=== PATIENT | male | born 1965 | race Caucasian/White ===

== ENCOUNTER 2019-10-10 23:30 | Emergency (ER) | payer MEDICAID, SELFPAY ==
[~2019-10-10] VITALS: Ht 162.6 cm; Wt 72.6 kg
[2019-10-10 23:41] VITALS: BP 141/79
[2019-10-10] MEDS ORDERED: CLINDAMYCIN HC300 MG ORAL (23:42)
--- NOTE | 2019-10-10 23:42 | Emergency Room Report ---
History of Present Illness General Chief Complaint: To Be Triaged Source: Patient Present Illness HPI This a 54-year-old male with no significant past medical history. He does have a history of drug abuse. He was brought in by police for medical clearance. Patient said that he has staph infection in his lower extremity. He said is been there for a week. There is some drainage. No fever chills but no nausea no vomiting. Denies any other complaint. No pain. Allergies: Coded Allergies: No Known Allergies (Unverified , 10/10/19) Patient History Past Medical History: see triage record, old chart reviewed Past Surgical History: other Pertinent Family History: none Social History: Reports: drug use Immunizations: other Reviewed Nursing Documentation: PMH: Agreed; PSxH: Agreed Review of Systems Eye: Denies: eye pain, blurred vision ENT: Denies: ear pain, nose congestion, throat swelling Respiratory: Denies: cough, shortness of breath Cardiovascular: Denies: chest pain, palpitations Gastrointestinal: Denies: abdominal pain, diarrhea, nausea, vomiting Musculoskeletal: Denies: back pain, joint pain Skin: Denies: rash Neurological: Denies: headache, numbness Endocrine: Denies: increased thirst, increased urine Hematologic/Lymphatic: Denies: easy bruising All Other Systems: negative except mentioned in HPI Physical Exam Vitals unremarkable Sp02 EP Interpretation: reviewed, normal General Appearance: well appearing, no apparent distress, alert Head: normocephalic, atraumatic Eyes: bilateral eye PERRL, bilateral eye EOMI ENT: hearing grossly normal, normal pharynx Neck: full range of motion, supple, no meningismus Respiratory: chest non-tender, lungs clear, normal breath sounds Cardiovascular #1: regular rate, rhythm, no murmur Gastrointestinal: normal bowel sounds, non tender, no mass, no organomegaly, no bruit, non-distended Musculoskeletal: back normal, normal range of motion, gait/station normal, other - Lower extremities with ulcerations. There is erythema to the lower extremities mostly on the right side. No abscess seen. Psychiatric: mood/affect normal Medical Decision Making Diagnostic Impression: Primary Impression: Cellulitis of both lower extremities Additional Impression: Substance abuse ER Course Patient with cellulitis lower extremities. I suspect he has skin picking now is infected. He denies any IV drug use or skin popping. No evidence of any abscess or necrotizing fasciitis. Dose of antibiotics given here. Wound dressing done. Patient will be discharged to police manager. Status: improved Disposition: HOME, SELF-CARE Condition: Stable Scripts Clindamycin Hcl (CLINDAMYCIN HCL) 300 Mg Capsule 300 MG ORAL THREE TIMES A DAY, #21 CAP Prov: Pablo David MD 10/10/19 Additional Instructions: Keep wound clean. Stop using drugs. Follow-up with your doctor in 7 days. Return if worse. Pablo David MD Oct 10, 2019 23:42
--- NOTE | 2019-10-10 23:43 | NUR ---
ED Nurse Note: Patient was BIB [employer] for medical clearance. Patient c/o right lower leg pain. Pt AAO x4, VSS at this time.
[2019-10-10] MEDS ORDERED: Clindamycin 150mg cap ORAL ONE (23:45)
[2019-10-10 23:49] VITALS: BP 141/79
--- NOTE | 2019-10-10 23:50 | NUR ---
ED Nurse Note: Pt cleared by health care Provider for discharge. DC instructions/prescription was given and explained to pt and verbalized understanding of teachings. All medical deviecs such as ID band removed. Pt is AAO x4, ambulatory and left with all personal belongings.
== END 2019-10-10 23:49 | disposition home or self-care (01) ==
LOC: EMR 23:38
DX: L03.116 Cellulitis of left lower limb (principal); L03.115 Cellulitis of right lower limb; F19.10 Other psychoactive substance abuse, uncomplicated
CPT/HCPCS: 99282